=== PATIENT | male | born 1980 | race Caucasian/White ===

== ENCOUNTER 2016-04-07 18:36 | Emergency (ER) | payer SELFPAY ==
[~2016-04-07] VITALS: Ht 190.5 cm; Wt 175.0 kg
[~2016-04-07 18:36] MED LIST: Z.0.NO CURRENT MEDS
[2016-04-07 18:38] VITALS: BP 187/107; PULSE 106; RESP 16; TEMP 98.2; O2SAT 97
[2016-04-07] MEDS ORDERED: METO25TA6 PO (20:51)
--- NOTE | 2016-04-07 20:57 | PD ---
HPI Chief Complaint: ENT Complaint Time Seen by Provider: 20:52 Travel History International Travel<30 days: No Contact w/Intl Traveler<30days: No Traveled to known affect area: No History of Present Illness HPI 35-year-old white male presents to emergency Department with complaints of difficulty swallowing solid foods. He states that this is been present now for the last several months. He states that he has noted increasing problems and has to chew was food much smaller. He feels as if it is getting stuck in the top of his throat as he swallows. He also states that he has hypertension but does not take any medications currently. He ran out of his medications when he moved to [place] in the last few months. Patient is able to swallow liquids easily and small food particles. No nausea vomiting. No abdominal pain. LOCATION: Esophagus QUALITY: Difficulty swallowing SEVERITY: Mild TIMING: Intermittent DURATION: 2 months CONTACTS: Not applicable MODIFYING FACTORS: Worse when swallowing his larger food boluses ASSOCIATED TIME AND SYMPTOMS: With eating PFSH Past Medical History Narrative Medical Hypertension Tetanus Vaccination: < 5 Years Past Surgical History Surgical History: No Previous Surgery Social History Alcohol Use: Yes (SOCIALLY) Tobacco Use: Yes (<1PPD) Substance Use: No Allergies-Medications (Allergen,Severity, Reaction): Coded Allergies: No Known Allergies (Verified Allergy, Mild, 09/10/06) Reported Meds & Prescriptions Reported Meds & Active Scripts Active Metoprolol Succinate ER 24 HR (Metoprolol Succinate) 25 Mg Tab 25 Mg PO DAILY Reported No Current Meds (Miscellaneous Medication) Misc Review of Systems Except as stated in HPI: all other systems reviewed are Neg Physical Exam Narrative GENERAL: Well-developed, well-nourished in no acute distress. Nontoxic appearing. HEAD: Normocephalic, atraumatic. EYES: Pupils equal round and reactive. Extraocular motions intact. No scleral icterus. No injection or drainage. ENT: TMs clear without erythema. The external auditory canals clear. Nose: clear . Posterior pharynx is pink and moist. No tonsillar edema or exudate. Uvula midline. Airway patent. NECK: Trachea midline.Supple, nontender, moves head freely. No central bony tenderness or spasm. CARDIOVASCULAR: Regular rate and rhythm without murmurs, gallops, or rubs. RESPIRATORY: Clear to auscultation. Breath sounds equal bilaterally. No wheezes , rales, or rhonchi. GASTROINTESTINAL: Abdomen soft, non-tender, nondistended. No hepato-splenomegaly , or palpable masses. No guarding. EXTREMITIES: No clubbing, cyanosis, or edema. No joint tenderness, effusion, or edema noted. BACK: Nontender without deformity or crepitance. No flank tenderness. Data Data Last Documented VS Vital Signs Date Time Temp Pulse Resp B/P Pulse Ox O2 Delivery O2 Flow Rate FiO2 04/07/16 18:38 98.2 106 16 187/107 97 MDM Medical Decision Making Medical Screen Exam Complete: Yes Emergency Medical Condition: Yes Medical Record Reviewed: Yes Differential Diagnosis Differential diagnoses: Globus hystericus, esophageal stricture, motility problem of the esophagus, nutcracker esophagus, uncontrolled hypertension, noncompliance Narrative Course Patient is not having any emergent condition at this time. His problem of swallowing solid foods can be worked up as an outpatient. His blood pressure is elevated therefore prescription for his blood pressure medication is been reissued. Diagnosis Primary Impression: Dysphagia Qualified Code: R13.11 - Oral phase dysphagia Additional Impression: Hypertension Qualified Code: I10 - Essential hypertension Patient Instructions: General Instructions Additional Instructions: Rest. Daily blood pressure. Chewing your food very well.. Metacarpal all Follow-up with patient assistance. Follow-up with a GI doctor. Return to the ER for problems. Med/Other Pt SpecificInfo: Prescription(s) given Scripts Metoprolol Succinate ER 24 HR 25 Mg Tab25 Mg PO DAILY #30 TAB Ref 0 Prov:Ann Hwang MD 04/07/16 Disposition: 01 DISCHARGE HOME Condition: Stable Johnnie Zhang Apr 07, 2016 20:57
== END 2016-04-07 21:04 | disposition home or self-care (01) ==
LOC: NEPB 18:36
DX: R13.11 Dysphagia, oral phase (principal); I10 Essential (primary) hypertension; F17.210 Nicotine dependence, cigarettes, uncomplicated
CPT/HCPCS: 99283